=== PATIENT | female | born 1940 | race Caucasian/White ===

== ENCOUNTER → 2020-06-21 | Outpatient (CLI) | payer MEDICARE ==
[2020-06-23 16:08] LABS: BABESIOSIS LEVEL IGG <1:10 (Neg:<1:10); BABESIOSIS LEVEL IGM <1:10 (Neg:<1:10)
== END ==
LOC: M PLALAB 11:44
PROVIDERS: ATTEND Internal Medicine Infectious Disease
DX: R50.9 Fever, unspecified (principal)
CPT/HCPCS: 36415; 86609; G0463

== ENCOUNTER → 2022-06-30 | Outpatient (CLI) | payer MEDICARE | LOC: M SOG 08:30 | PROVIDERS: ATTEND Orthopaedic Surgery Adult Reconstructive Orthopaedic Surgery | DX: M25.561 Pain in right knee (principal) ==

== ENCOUNTER 2023-03-12 06:32 | Day surgery (SDC) | payer MEDICARE ==
[~2023-03-12] VITALS: Ht 147.3 cm; Wt 59.7 kg
[~2023-03-12 06:32] MED LIST: ASPI81TA26 PO; B12 LIQUID PO; CALC250T PO; CO Q100C PO; CYCLOPENTOLATE 1% OPHTH SOLN 2ML BTL OS SCH; D3 S1CAP3 PO; FLURBIPROFEN 0.03% OPHTH SOLN 2.5 ML OS SCH; HYDR12CA PO; LEVO75TA4 PO; LISI10TA22 PO; MAGN200T PO; PHENYLEPHRINE 2.5% OPHTH SOL 2ML OS SCH; TETRACAINE 0.5% OPHTH SOLN 4ML OS SCH; VITA500C24 PO
[2023-03-12] MEDS ORDERED: LIDOCAINE 1% SDV 5ML VIAL As Ordered ONE (06:59)
[2023-03-12] MEDS ORDERED: LR 1,000 ML IV SCH (07:00)
[2023-03-12] MEDS ORDERED: MIDAZOLAM INJ 2MG/2ML VIAL As Ordered ONE (08:56)
[2023-03-12] MEDS ORDERED: fentaNYL 100 MCG/2 ML INJECTION As Ordered ONE (08:56)
[2023-03-12 09:11] VITALS: BP 165/77
== END 2023-03-12 09:29 | disposition home or self-care (01) ==
LOC: M SDC 06:32
PROVIDERS: ATTEND Ophthalmology
DX: H25.12 Age-related nuclear cataract, left eye (principal); I10 Essential (primary) hypertension; E78.5 Hyperlipidemia, unspecified; E05.90 Thyrotoxicosis, unspecified without thyrotoxic crisis or storm; K57.92 Diverticulitis of intestine, part unspecified, without perforation or abscess without bleeding; Z79.82 Long term (current) use of aspirin; Z79.899 Other long term (current) drug therapy; Z87.891 Personal history of nicotine dependence
CPT/HCPCS: 66984; 93005; J2250; J3010; V2632